=== PATIENT | female | born 1985 | race Two or more races ===

== ENCOUNTER → 2025-06-28 | Emergency (ER) | payer OTHER ==
[~2025-06-28] VITALS: Ht 170.2 cm; Wt 72.6 kg
[~2025-06-28] MED LIST: CLONAZEPAM1 MG; COZAAR50 MG; CRESTOR40 MG; DEXAMETHASONE SODIUM PHOSPHATE 4 MG/ML VIAL IM STA; DEXAMETHASONE SODIUM PHOSPHATE 4 MG/ML VIAL ONE; KETOROLAC TROMETHAMINE 60 MG VIAL IM ONE; KETOROLAC TROMETHAMINE 60 MG VIAL IM STA; ORPHENADRINE CITRATE 30 MG/ML AMPUL IM STA; ORPHENADRINE CITRATE 30 MG/ML AMPUL ONE
== END | disposition home or self-care (01) ==
LOC: ER 00:38
DX: M25.562 Pain in left knee (principal); I10 Essential (primary) hypertension; F41.8 Other specified anxiety disorders; M25.561 Pain in right knee; M25.522 Pain in left elbow; M25.531 Pain in right wrist; M79.641 Pain in right hand